=== PATIENT | male | born 1990 | race Hispanic/Latino ===

== ENCOUNTER 2023-01-12 13:48 | Emergency (ER) | payer OTHER ==
[~2023-01-12] VITALS: Ht 167.6 cm; Wt 94.3 kg
[2023-01-12 14:41] LABS: BASOPHILS % (AUTO) 0.6 % (0.0-5.0); HEMATOCRIT 43.8 % (42-54); MEAN CORPUSCULAR HEMOGLOBIN 33.9 pg (27.0-33.0); MEAN CORPUSCULAR HGB CONC 34.5 g/dL (32.0-36.0); MEAN CORPUSCULAR VOLUME 98.4 fL (79-99); MONOCYTES % (AUTO) 10.4 % (3.0-13.0); NEUTROPHILS % (AUTO) 63.7 % (40.0-77.0); PLATELET COUNT (AUTO) 162 K/uL (130-400); RED BLOOD CELL COUNT(AUTO) 4.45 MIL/uL (4.50-6.20); RED CELL DISTRIBUTION WIDTH 12.7 % (11.0-15.5); WHITE BLOOD COUNT (AUTO) 6.6 K/uL (4.8-10.8)
[2023-01-12 14:57] LABS: CREATININE 0.8 mg/dL (0.5-1.5); POTASSIUM 4.4 mmol/L (3.5-5.1)
[2023-01-12 15:02] LABS: ALBUMIN 4.3 g/dL (3.5-5.0); TOTAL PROTEIN, SERUM 7.5 g/dL (6.0-8.3)
[2023-01-12 15:23] VITALS: BP 129/74
== END 2023-01-12 15:20 | disposition home or self-care (01) ==
LOC: EDH 13:48
DX: E86.0 Dehydration (principal)
CPT/HCPCS: 36415; 80053; 82948; 85025